=== PATIENT | male | born 1985 | race Two or more races ===

== ENCOUNTER 2016-11-05 11:13 | Emergency (ER) | payer SELFPAY ==
[~2016-11-05] VITALS: Ht 172.7 cm; Wt 72.6 kg
[2016-11-05 11:25] VITALS: BP 128/71
== END 2016-11-05 11:45 | disposition left against medical advice (07) ==
LOC: ER 11:40
DX: S49.91XA Unspecified injury of right shoulder and upper arm, initial encounter (principal); S89.91XA Unspecified injury of right lower leg, initial encounter; S59.902A Unspecified injury of left elbow, initial encounter; Y04.0XXA Assault by unarmed brawl or fight, initial encounter; Y93.89 Activity, other specified; Y92.89 Other specified places as the place of occurrence of the external cause; Y99.8 Other external cause status

== ENCOUNTER 2017-01-25 16:33 | Emergency (ER) | payer SELFPAY | END 2017-01-25 17:15 | disposition left against medical advice (07) | LOC: ER 16:33 | DX: R05 Cough (principal); Z53.21 Procedure and treatment not carried out due to patient leaving prior to being seen by health care provider ==

== ENCOUNTER 2017-08-03 14:56 | Emergency (ER) | payer SELFPAY ==
[2017-08-03 16:35] LABS: INFLUENZA A PATIENT NEGATIVE (NEGATIVE); INFLUENZA B PATIENT NEGATIVE (NEGATIVE); OBC FLU VALID
== END 2017-08-03 17:09 | disposition home or self-care (01) ==
LOC: ER 14:56
DX: J40 Bronchitis, not specified as acute or chronic (principal); F12.10 Cannabis abuse, uncomplicated
CPT/HCPCS: 87804; 87804-59; 99284

== ENCOUNTER 2017-12-26 13:51 | Emergency (ER) | payer SELFPAY ==
[2017-12-26] MEDS: IV NORMAL SALINE 1000ML BAG 1,000 ML IV ×3 (14:19→15:45)
[2017-12-26] MEDS: methylPREDNISolone SOD SUCC PF 125 MG/2 ML VIAL. IV (14:22)
[2017-12-26 14:49] LABS: TROPONINI 0.034 ng/mL (0.000-0.055)
[2017-12-26 14:50] LABS: ANION GAP 12 (6-14); BLOOD UREA NITROGEN 44 mg/dL (8-26); BUN/CREATININE RATIO 26 (6-20); CALCIUM 9.8 mg/dL (8.5-10.1); CARBON DIOXIDE 26 mmol/L (21-32); CHLORIDE 96 mmol/L (98-107); CREATININE 1.7 mg/dL (0.7-1.3); GFR 47.2; GLUCOSE 120 mg/dL (70-99); POTASSIUM 3.3 mmol/L (3.5-5.1); SODIUM 134 mmol/L (136-145)
[2017-12-26] MEDS: IPRATRPIUM/ALBUTEROL 0.5/2.5MG 3 ML NEBU. NEB (14:50)
[2017-12-26 14:54] LABS: ALBUMIN 5.3 g/dL (3.4-5.0); ALBUMIN/GLOBULIN RATIO 1.5 (1.0-1.7); ALK PHOS 137 U/L (46-116); ALT (SGPT) 29 U/L (16-63); AST (SGOT) 23 U/L (15-37); TOTAL BILIRUBIN 1.2 mg/dL (0.2-1.0); TOTAL PROTEIN 8.8 g/dL (6.4-8.2)
[2017-12-26 15:11] LABS: CKMB INDEX 0.9 % (0-4); CKMB MASS 2.5 ng/mL (0.0-3.6); CREATINE KINASE 271 U/L (39-308)
[2017-12-26 16:21] LABS: BILIRUBIN,URINE NEGATIVE (NEG); CLARITY,URINE CLEAR; COLOR,URINE YELLOW; GLUCOSE,URINE NEGATIVE (NEG); NITRITE,URINE NEGATIVE (NEG); PROTEIN,URINE NEGATIVE (NEG-TRACE)
[2017-12-26 16:26] LABS: RBC,URINE 0 /HPF (0-2)
[2017-12-26 16:27] LABS: BACTERIA,URINE FEW /HPF (0-FEW); HYALINE CASTS, URINE MODERATE /HPF; SPERM,URINE PRESENT /HPF; SQUAMOUS EPITHELIAL CELL,UR OCC /LPF
[2017-12-26] MEDS: MORPHINE SULFATE 4 MG/ML DISP.SYRIN. IV (16:30)
[2017-12-26 17:49] LABS: ADD MAN DIFF? NO
[2017-12-26 17:50] LABS: BASO # 0.1 x10^3/uL (0.0-0.2); BASO % 1 % (0-3); EOS % 0 % (0-3); HEMATOCRIT 51.4 % (39.0-53.0); LYMPH # 2.4 x10^3/uL (1.0-4.8); LYMPH % 15 % (24-48); MEAN CORPUSCULAR HEMOGLOBIN 32 pg (25-35); MEAN CORPUSCULAR HGB CONC 35 g/dL (31-37); MEAN CORPUSCULAR VOLUME 91 fL (79-100); MONO # 0.9 x10^3/uL (0.0-1.1); MONO % 6 % (0-9); NEUT # 12.8 x10^3uL (1.8-7.7); NEUT % 79 % (31-73); PLATELET COUNT 263 x10^3/uL (140-400); RED BLOOD COUNT 5.66 x10^6/uL (4.30-5.70); RED CELL DISTRIBUTION WIDTH 13.9 % (11.5-14.5); WHITE BLOOD COUNT 16.2 x10^3/uL (4.0-11.0)
== END 2017-12-26 17:42 | disposition home or self-care (01) ==
LOC: ER 13:51
DX: E86.0 Dehydration (principal); R25.2 Cramp and spasm; R00.0 Tachycardia, unspecified; F12.10 Cannabis abuse, uncomplicated; F10.10 Alcohol abuse, uncomplicated; Z87.891 Personal history of nicotine dependence
CPT/HCPCS: 36415; 71045; 80053; 81001; 82553; 84484; 85025; 87086; 93005; 94640; 96361; 96374; 99285-25; J2930; J7030; J7620

== ENCOUNTER 2018-01-09 15:09 | Emergency (ER) | payer SELFPAY ==
[2018-01-09 15:33] LABS: ADD MAN DIFF? NO
[2018-01-09 15:37] LABS: BASO % 1 % (0-3); EOS # 0.1 x10^3/uL (0.0-0.7); EOS % 1 % (0-3); HEMATOCRIT 44.9 % (39.0-53.0); HEMOGLOBIN 15.6 g/dL (13.0-17.5); LYMPH # 2.5 x10^3/uL (1.0-4.8); LYMPH % 26 % (24-48); MEAN CORPUSCULAR HEMOGLOBIN 32 pg (25-35); MEAN CORPUSCULAR HGB CONC 35 g/dL (31-37); MEAN CORPUSCULAR VOLUME 91 fL (79-100); MONO # 0.6 x10^3/uL (0.0-1.1); MONO % 6 % (0-9); NEUT # 6.6 x10^3uL (1.8-7.7); NEUT % 67 % (31-73); PLATELET COUNT 208 x10^3/uL (140-400); RED BLOOD COUNT 4.93 x10^6/uL (4.30-5.70); WHITE BLOOD COUNT 9.8 x10^3/uL (4.0-11.0)
[2018-01-09] MEDS: KETOROLAC 30 MG/ML INJ. IV (15:41)
[2018-01-09] MEDS: IV NORMAL SALINE 1000ML BAG 1,000 ML IV ×2 (15:42→16:31)
[2018-01-09 15:58] LABS: ANION GAP 9 (6-14); BLOOD UREA NITROGEN 13 mg/dL (8-26); BUN/CREATININE RATIO 13 (6-20); CARBON DIOXIDE 29 mmol/L (21-32); CHLORIDE 102 mmol/L (98-107); GFR 87.2; GLUCOSE 97 mg/dL (70-99); POTASSIUM 3.7 mmol/L (3.5-5.1); SODIUM 140 mmol/L (136-145)
[2018-01-09 16:04] LABS: ALBUMIN/GLOBULIN RATIO 1.2 (1.0-1.7); ALK PHOS 109 U/L (46-116); ALT (SGPT) 23 U/L (16-63); AST (SGOT) 17 U/L (15-37); TOTAL BILIRUBIN 0.5 mg/dL (0.2-1.0); TOTAL PROTEIN 7.3 g/dL (6.4-8.2)
[2018-01-09 16:30] LABS: BILIRUBIN,URINE NEGATIVE (NEG); CLARITY,URINE CLOUDY; COLOR,URINE YELLOW; GLUCOSE,URINE NEGATIVE (NEG); NITRITE,URINE NEGATIVE (NEG); PROTEIN,URINE NEGATIVE (NEG-TRACE)
[2018-01-09 16:54] LABS: BACTERIA,URINE 0 /HPF (0-FEW); HYALINE CASTS, URINE OCCASIONAL /HPF; RBC,URINE 0 /HPF (0-2); WBC,URINE 0 /HPF (0-4)
== END 2018-01-09 17:25 | disposition home or self-care (01) ==
LOC: ER 15:09
DX: E86.0 Dehydration (principal); R10.9 Unspecified abdominal pain; F10.10 Alcohol abuse, uncomplicated
CPT/HCPCS: 36415; 74176; 80053; 81001; 85025; 96361; 96374; 99285-25; J1885; J7030

== ENCOUNTER 2020-10-19 13:33 | Emergency (ER) | payer SELFPAY ==
[~2020-10-19] VITALS: Ht 172.7 cm; Wt 65.0 kg
[~2020-10-19 13:33] MED LIST: ALBU2.5V8 INH; AZIT250T PO; CYCL10TA2 PO; NAPR-514 PO
[2020-10-19 15:10] VITALS: BP 142/70
--- NOTE | 2020-10-19 15:13 | PHYS DOC ---
Past Medical History Past Medical History: Bronchitis Past Surgical History: No Surgical History Smoking Status: Former Smoker Alcohol Use: Occasionally Drug Use: Marijuana General Adult EDM: Chief Complaint: NAUSEA/VOMITING/DIARRHEA HPI: HPI: Patient is a 35 year old male who presents the ED today complaining of nausea and vomiting that began that occurred on last week as well as having hot flashes/subjective fevers during the weekend, he states he missed work on Monday as well as during the weekend. He is requesting a note for work. Denies any abdominal pain right now. Reports use of street narcotics by choice. Review of Systems: Review of Systems: Constitutional: Denies fever or chills. [] Eyes: Denies change in visual acuity. [] HENT: Denies nasal congestion or sore throat. [] Respiratory: Denies cough or shortness of breath. [] Cardiovascular: Denies chest pain or edema. [] GI: Reports nausea and vomiting. Denies abdominal pain, bloody stools or diarrhea. [] : Denies dysuria. [] Musculoskeletal: Denies back pain or joint pain. [] Integument: Denies rash. [] Neurologic: Denies headache, focal weakness or sensory changes. [] Psychiatric: Denies depression or anxiety. [] Heart Score: C/O Chest Pain: N/A Risk Factors: Risk Factors: DM, Current or recent (<one month) smoker, HTN, HLP, family history of CAD, obesity. Risk Scores: Score 0 - 3: 2.5% MACE over next 6 weeks - Discharge Home Score 4 - 6: 20.3% MACE over next 6 weeks - Admit for Clinical Observation Score 7 - 10: 72.7% MACE over next 6 weeks - Early Invasive Strategies Allergies: Allergies: Allergies Coded Allergies Type Severity Reaction Last Updated Verified No Known Drug Allergies 10/27/15 No Physical Exam: PE: Constitutional: Well developed, well nourished, no acute distress, non-toxic appearance. [] HENT: Normocephalic, atraumatic, bilateral external ears normal, oropharynx moist, no oral exudates, nose normal. [] Eyes: PERRLA, EOMI, conjunctiva normal, no discharge. [] Neck: Normal range of motion, no tenderness, supple, no stridor. [] Cardiovascular:Heart rate regular rhythm, no murmur [] Lungs & Thorax: Bilateral breath sounds clear to auscultation [] Abdomen: Bowel sounds normal, soft, no tenderness, no masses, no pulsatile masses. [] Skin: Warm, dry, no erythema, no rash. [] Back: No tenderness, no CVA tenderness. [] Extremities: No tenderness, no cyanosis, no clubbing, ROM intact, no edema. [] Neurologic: Alert and oriented X 3, normal motor function, normal sensory function, no focal deficits noted. [] Psychologic: Affect normal, judgement normal, mood normal. [] EKG: EKG: [] Radiology/Procedures: Radiology/Procedures: [] Course & Med Decision Making: Course & Med Decision Making Pertinent Labs and Imaging studies reviewed. (See chart for details) This is a 35-year-old male patient presenting to the ED today complaining of nausea and vomiting that do not count on last week and during the week and not feeling well. Was tested for COVID-19, requesting a note for work which was provided. Discharge to home encouraged to consider getting help for narcotic addiction. [employer] Disclaimer: [employer] Disclaimer: This electronic medical record was generated, in whole or in part, using a voice recognition dictation system. Departure Departure Impression: Primary Impression: Person under investigation for COVID-19 Additional Impressions: Nausea & vomiting Qualified Codes: R11.2 - Nausea with vomiting, unspecified Narcotic addiction Disposition: HOME / SELF CARE / HOMELESS Condition: STABLE Referrals: NO PCP (PCP) Follow-up with your doctor in 1 to 2 weeks Patient Instructions: Nausea and Vomiting, [id number] Additional Instructions: You were tested for COVID-19. You cannot go back to work until you get results, in the meantime push fluids, maintain good hand hygiene, wear your mask when around other people Scripts Ondansetron (ONDANSETRON ODT) 4 Mg Tab.rapdis 1 TAB PO PRN Q6-8HRS, #16 TAB Prov: ASHLEY YOUNG Osei PROCESS PLANNER 10/19/20 ASHLEY YOUNG PROCESS PLANNER October 19, 2020 15:13
[2020-10-19] MEDS ORDERED: ONDA4TAB12 PO (15:24)
--- NOTE | 2020-10-20 15:12 | NUR ---
IP: Informed pt of negative COVID test. Pt verbalized understanding.
== END 2020-10-19 15:28 | disposition home or self-care (01) ==
LOC: ER 13:33
DX: R11.2 Nausea with vomiting, unspecified (principal); Z20.822 Contact with and (suspected) exposure to COVID-19; F11.20 Opioid dependence, uncomplicated; Z87.891 Personal history of nicotine dependence
CPT/HCPCS: 99283; U0003; U0005

== ENCOUNTER 2020-10-24 19:33 | Emergency (ER) | payer SELFPAY ==
[~2020-10-24] VITALS: Ht 172.7 cm; Wt 63.0 kg
[~2020-10-24 19:33] MED LIST changes: +ONDA4TAB12 PO
[2020-10-24 19:45] VITALS: BP 156/83
--- NOTE | 2020-10-24 19:58 | PHYS DOC ---
Past Medical History Past Medical History: Bronchitis Past Surgical History: No Surgical History Smoking Status: Current Every Day Smoker Alcohol Use: Occasionally Drug Use: Marijuana General Adult EDM: Chief Complaint: MULTIPLE COMPLAINTS HPI: HPI: Patient is a 35 year old male presents with report of body aches that have been ongoing for the past 2 days. Patient report he had had similar symptoms with associated nausea and vomiting 1 week ago for which he had presented to the ER on 10/19/20 and tested for COVID-19. Patient reports he was prescribed some medi cation, but he never went and picked it up. Patient reports he was called and told testing had come back negative which was confirmed per [employer] review. Patient reports the nausea and vomiting had since resolved. Patient does report some nasal congestion but denies any sore throat, cough, or fever. Patient denies known sick contacts. Patient also denies withdrawing from any alcohol or drug use. Review of Systems: Review of Systems: Constitutional: Denies fever; reports chills and body aches Eyes: Denies redness or eye pain HENT: Denies sore throat; reports nasal congestion Respiratory: Denies cough or shortness of breath Cardiovascular: Denies chest pain or palpitations GI: Denies abdominal pain, nausea, or vomiting : Denies dysuria or hematuria Musculoskeletal: Denies back pain or joint pain Integument: Denies rash or skin lesions Neurologic: Denies headache, focal weakness or sensory changes Complete systems were reviewed and found to be within normal limits, except as documented in this note. Heart Score: C/O Chest Pain: N/A Allergies: Allergies: Allergies Coded Allergies Type Severity Reaction Last Updated Verified No Known Drug Allergies 10/27/15 No Physical Exam: PE: Constitutional: Well developed, well nourished, no acute distress, non-toxic appearance HENT: Normocephalic, atraumatic, pharynx without erythema, some mild nasal co ngestion noted, TMs clear Eyes: Conjunctiva normal, no discharge Neck: Normal range of motion, no tenderness, supple, no meningeal signs Lungs & Thorax: No respiratory distress, equal chest rise and fall Abdomen: Soft, no tenderness Skin: Warm, dry, no erythema, no rash Extremities: No tenderness, ROM intact, no edema Neurologic: Alert and oriented X 3, no focal deficits noted Psychologic: Affect normal, judgment normal EKG: EKG: [] Radiology/Procedures: Radiology/Procedures: [] Course & Med Decision Making: Course & Med Decision Making Patient presents with body aches and some mild nasal congestion. History of nausea and vomiting which is since resolved. Patient had been tested for COVID- 19 here at [facility] in the ER on 10/19/2020 which had resulted negative. Symptoms are concerning for possible viral illness. Decision to retest given patient's symptoms. Symptomatic treatment provided with oral steroid. Patient stable for discharge with outpatient follow-up with PCP. Discussed findings and plan with patient, who acknowledges understanding and agreement. Dragon Disclaimer: Gregory Disclaimer: This electronic medical record was generated, in whole or in part, using a voice recognition dictation system. Departure Departure Impression: Primary Impression: Chills Additional Impression: Suspected 2019 novel coronavirus infection Disposition: HOME / SELF CARE / HOMELESS Condition: STABLE Referrals: NO PCP (PCP) Patient Instructions: Viral Syndrome Additional Instructions: You have been tested for or diagnosed with COVID-19. It is an infection caused by a new type of coronavirus. COVID-19 will cause cold-like or mild flu symptoms in most. It can cause more severe symptoms like problems breathing in some. There is no treatment for COVID-19. The body will clear the infection over time. Self-care will help to ease discomfort. Steps to Take: Self-Care Rest as needed. Healthy habits may help you feel better. Steps include: Choose healthy foods including fruits and vegetables. Drink water throughout the day. Get plenty of sleep each night. If you smoke, try to quit. It may ease breathing. Avoid alcohol. Keep Others Healthy The virus can spread to others. Droplets are released every time you sneeze or cough. The droplets can get into the mouth, nose, or eyes of people near you and lead to infection. To lower the chances of spreading COVID-19 to others: Stay at home until your doctor has said it is safe to leave. If you tested positive this will mean staying isolated until both of the following are true: At least 7 days have passed since the start of illness. You are free of fever for at least 72 hours without the use of medicine. During this time: - Avoid public areas, events, or transportation. Do not return to work or school until your doctor has said it is safe to do so. - Call ahead if you need to go to a medical center. Let them know you may have COVID-19. It will help them guide you where to go. They may also ask you to wear a facemask when you come to the office. - If you call for emergency medical services, let them know you may have COVID- 19. While at home: - Try to avoid close contact with others. Stay about 6 feet away. - If possible, spend most of your time in a separate room from others. - Use a face mask if you will be in close contact with others such as sharing a room or vehicle. - Have someone wipe down common surfaces in the home. Use household yard truck driver every day on areas like doorknobs, counters, or sinks. - Cough or sneeze into a tissue. Throw the tissue away right after use. If a tissue is not available, cough or sneeze into your elbow. - Wash your hands often. Wash them after sneezing or coughing. Use soap and water and wash for at least 20 seconds. Alcohol based hand cleaners can be used if soap and water is not available. - Do not prepare food for others. Avoid sharing personal items like forks, spoons, or toothbrushes. - Avoid close contact with pets while you are sick. There is no evidence of the virus passing to pets. This is a safety step until more is known about this virus. Isolation can be frustrating. Social interaction can help. Keep in touch with friends and family through phone and tech options. You can still interact with others in your home, just keep a safe distance of about 6 feet. Follow-up: Your doctors office will check in with you to see if there are any changes in your health. You may be asked to keep track of symptoms to share with them. They will also let you know when you are clear to be in public again. Problems to Look Out For: Contact your doctor if your recovery is not going as you expect. Get emergency care if you have problems such as: - Trouble breathing - Nonstop chest pain or pressure - Changes in awareness, confusion, or problems waking - Lips or face have bluish color - Worsening of symptoms If you think you have an emergency, call for emergency medical services right away. As taken from [facility] WILLIE HART DO October 24, 2020 19:58
[2020-10-24] MEDS ORDERED: DEXAMETHASONE 4 MG TABLET PO ONE (20:00)
--- NOTE | 2020-10-26 09:37 | NUR ---
IP: Attempted to contact pt concerning covid results. Phone number not accepting calls at this time Will try again later.
--- NOTE | 2020-10-27 13:46 | NUR ---
IP: Attempted a second time to contact pt concerning COVID results. No answer, left a voicemail to return the call.
== END 2020-10-24 20:18 | disposition home or self-care (01) ==
LOC: ER 19:33
DX: R68.83 Chills (without fever) (principal); R11.2 Nausea with vomiting, unspecified; M79.10 Myalgia, unspecified site; F17.200 Nicotine dependence, unspecified, uncomplicated; Z20.822 Contact with and (suspected) exposure to COVID-19
CPT/HCPCS: 99283; U0003; U0005